=== PATIENT | female | born 1975 | race Caucasian/White ===

== ENCOUNTER 2018-09-19 00:03 | Emergency (ER) | payer MEDICAID ==
[~2018-09-19] VITALS: Ht 167.6 cm; Wt 86.2 kg
[2018-09-19 00:07] VITALS: Ht 167.6 cm; Wt 86.2 kg
[2018-09-19 01:20] VITALS: BP 147/84
== END 2018-09-19 01:20 | disposition home or self-care (01) ==
LOC: ED 00:03
DX: S61.512A Laceration without foreign body of left wrist, initial encounter (principal); W25.XXXA Contact with sharp glass, initial encounter; Y93.89 Activity, other specified; Y92.89 Other specified places as the place of occurrence of the external cause; Y99.8 Other external cause status
CPT/HCPCS: J2001

== ENCOUNTER 2018-10-11 18:06 | Emergency (ER) | payer MEDICAID ==
[~2018-10-11] VITALS: Ht 170.2 cm; Wt 79.4 kg
[2018-10-11 18:41] VITALS: Ht 170.2 cm; Wt 79.4 kg
[2018-10-11 21:04] VITALS: BP 125/91
== END 2018-10-11 21:04 | disposition home or self-care (01) ==
LOC: ED 18:06
DX: D17.0 Benign lipomatous neoplasm of skin and subcutaneous tissue of head, face and neck (principal); F17.210 Nicotine dependence, cigarettes, uncomplicated; I10 Essential (primary) hypertension